=== PATIENT | female | born 1980 ===

== ENCOUNTER 2022-05-20 17:40 | Emergency (ER) | payer MEDICAID ==
[2022-05-20 19:06] LABS: CORONAVIRUS COVID-19 NAA NEGATIVE (NEGATIVE); INFLUENZA A NAA NEGATIVE (NEGATIVE); INFLUENZA B NAA NEGATIVE (NEGATIVE)
== END 2022-05-20 20:12 | disposition home or self-care (01) ==
LOC: MW.ED 17:40
DX: Z20.822 Contact with and (suspected) exposure to COVID-19 (principal); Z71.1 Person with feared health complaint in whom no diagnosis is made
CPT/HCPCS: 0240U; 99283